=== PATIENT | female | born 2005 | race Caucasian/White ===

== ENCOUNTER 2023-06-21 21:32 | Emergency (ER) | payer MEDICAID ==
[~2023-06-21] VITALS: Ht 152.4 cm; Wt 49.9 kg
[2023-06-21 21:35] VITALS: BP_SYST 97; PULSE 78; RESP 16; TEMP 98; O2SAT 100
[2023-06-21 23:18] LABS: BASOPHILS # (AUTO) 0.2 K/uL (0.0-0.2); BASOPHILS % (AUTO) 3.1 % (0.0-2.0); EOSINOPHILS # (AUTO) 0.1 K/uL (0.0-0.4); HEMATOCRIT 37.6 % (36-48); HEMOGLOBIN 12.8 g/dL (12.0-16.0); LYMPHOCYTES # (AUTO) 1.9 K/uL (1.0-5.5); LYMPHOCYTES % (AUTO) 23.6 % (20.5-51.5); MEAN CORPUSCULAR HEMOGLOBIN 29 pg (27-31); MEAN CORPUSCULAR HGB CONC 34 % (32-36); MEAN CORPUSCULAR VOLUME 86 fL (79.0-98.0); MONOCYTES # (AUTO) 0.4 K/uL (0.0-1.0); MONOCYTES % (AUTO) 5.3 % (1.7-9.3); NEUTROPHILS # (AUTO) 5.3 K/uL (1.8-7.7); PLATELET COUNT (AUTO) 241 K/uL (130-430); RED BLOOD CELL COUNT(AUTO) 4.36 MIL/uL (4.2-6.2)
[2023-06-21 23:30] LABS: ANION GAP 10 (5-15); CALCIUM 8.5 mg/dL (8.4-11.0); CARBON DIOXIDE 26 mmol/L (23-29); CHLORIDE 101 mmol/L (98-107); CREATININE 0.62 mg/dL (0.55-1.30); GFR AFRICAN AMERICAN 159 mL/min (>90); GLUCOSE 73 mg/dL (74-106); POTASSIUM 3.4 mmol/L (3.5-5.1); SODIUM SERUM 137 mmol/L (136-145); UREA NITROGEN, BLOOD 9 mg/dL (8-21)
[2023-06-21 23:33] LABS: GFR NON AFRICAN-AMERICAN 132 mL/min (>90)
[2023-06-22 00:14] VITALS: BP_SYST 105; PULSE 65; RESP 18; TEMP 97.7; O2SAT 98
== END 2023-06-22 00:15 | disposition home or self-care (01) ==
LOC: SED 21:32
DX: R07.9 Chest pain, unspecified (principal)
CPT/HCPCS: 36415; 80048; 84484; 85025; 93005; 99284